=== PATIENT | male | born 1985 | race Asian ===

== ENCOUNTER 2016-08-05 08:51 | Emergency (ER) | payer SELFPAY ==
[~2016-08-05] VITALS: Ht 170.2 cm; Wt 68.2 kg
[2016-08-05 08:53] VITALS: BP 153/91
== END 2016-08-05 10:18 | disposition left against medical advice (07) ==
LOC: EMS 08:52
DX: R10.12 Left upper quadrant pain (principal); R10.11 Right upper quadrant pain; Z53.21 Procedure and treatment not carried out due to patient leaving prior to being seen by health care provider

== ENCOUNTER → 2021-07-22 | Outpatient (CLI) | payer OTHER ==
[2021-07-23 05:07] LABS: RUBEOLA (MEASLES) IGG >300.0 AU/mL (Immune >16.4)
== END | disposition home or self-care (01) ==
LOC: MSR 09:41
PROVIDERS: ATTEND Internal Medicine
DX: Z02.1 Encounter for pre-employment examination (principal); R76.11 Nonspecific reaction to tuberculin skin test without active tuberculosis
CPT/HCPCS: 71045; 86706; 86735; 86762; 86765; 86787; 36415-L1; 36415-TC

== ENCOUNTER 2023-04-02 16:00 | Emergency (ER) | payer OTHER ==
[~2023-04-02] VITALS: Ht 170.2 cm; Wt 75.0 kg
[2023-04-02] MEDS ORDERED: LIDOCAINE 5% TRANSDERMAL PATCH TD ONE (16:15)
[2023-04-02] MEDS ORDERED: CYCLOBENZAPRINE HCL 10 MG TABLET PO ONE (16:15)
[2023-04-02] MEDS ORDERED: KETOROLAC TROMETHAMINE 30 MG/ML VIAL IM ONE (16:15)
[2023-04-02 17:27] VITALS: TEMP 98.1
[2023-04-02] MEDS ORDERED: IBUP-1492 PO (17:40)
[2023-04-02] MEDS ORDERED: CYCL-448 PO (17:40)
[2023-04-02] MEDS ORDERED: LIDO700A15 TP (17:40)
[2023-04-02 18:00] VITALS: BP 146/93; PULSE 89; RESP 18
== END 2023-04-02 18:14 | disposition home or self-care (01) ==
LOC: EMS 16:09
DX: S39.012A Strain of muscle, fascia and tendon of lower back, initial encounter (principal); Z90.49 Acquired absence of other specified parts of digestive tract; X50.0XXA Overexertion from strenuous movement or load, initial encounter; Y93.89 Activity, other specified; Y92.238 Other place in hospital as the place of occurrence of the external cause; Y99.0 Civilian activity done for income or pay
CPT/HCPCS: 99283; 96372; J1885